=== PATIENT | female | born 1950 | race Caucasian/White ===

== ENCOUNTER 2019-01-17 17:20 | Emergency (ER) | payer OTHER ==
--- NOTE | 2019-01-17 17:47 | PDOC ---
Rapid Medical Evaluation Time Seen by Provider: 01/17/19 17:45 Medical Evaluation: 01/17/19 17:45 HPI: vagianl and anal itching with dizziness x3 days PE:deferred no gross deficits ORDERS: UA and Cx labs Discharge Disposition - Diagnosis Dizziness, Vaginal itching - Referrals - Patient Instructions - Post Discharge Activity
[2019-01-17 18:05] VITALS: TEMP 97.8; BMI 28.3
[2019-01-17 18:52] VITALS: BP 156/69; PULSE 62
[2019-01-17 19:20] LABS: EOS % 2.9 % (0-4.5); HEMATOCRIT 41.1 % (32.4-45.2); LYMPH % 14.2 % (8-40); MCH 30.9 pg (25.7-33.7); MEAN CELL VOLUME 90.9 fl (80-96); MEAN PLT VOLUME 9.6 fl (7.5-11.1); MONO % 5.1 % (3.8-10.2); NEUT % 76.8 % (42.8-82.8); PLATELET COUNT 187 K/MM3 (134-434); RBC 4.52 M/mm3 (3.60-5.2); RDW 13.5 % (11.6-15.6); WHITE BLOOD COUNT 8.2 K/mm3 (4.0-10.0)
[2019-01-17 19:36] LABS: BILIRUBIN,TOTAL 0.3 mg/dL (0.2-1); BLOOD UREA NITROGEN 10.9 mg/dL (7-18); CALCIUM 8.8 mg/dL (8.5-10.1); POTASSIUM 3.9 mmol/L (3.5-5.1); TOT PROT 6.7 g/dl (6.4-8.2)
[2019-01-17] MEDS ORDERED: HYDROCORTISONE 2.5% TOPICAL CREAM 30 GM TUBE TP STA (19:54)
--- NOTE | 2019-01-17 19:55 | PDOC ---
History of Present Illness - General Chief Complaint: Lightheaded Stated Complaint: VAGINAL ITCHING Time Seen by Provider: 01/17/19 17:45 History Source: Patient Exam Limitations: No Limitations - History of Present Illness Initial Comments: HPI: 68 y/o female presenting to [facility] ER complaining of four months of vaginal rash with itching and burning. Rash is localized and does not radiate beyond the vaginal/ perineal area. Was evaluated at [facility] ED approx. 4 weeks ago and given unknown prescription, thinks possibly Clotrimazone, which gave minimal relief. Was also instructed to bathe in bleach which made the sensation worse. Denies vaginal discharge or involvement of mouth or eyes. Denies new medications. Not sexually active in approx. 10 years since the of her . Reports her boyfriend is in his 70s and think goodness, doesnt want it. Reported lightheadedness to RME. Clarified that the itching becomes so intense that she feels lightheaded. Medical Hx: - Asthma - HTN - CAD s/p IL - Nonspecific skin allergies, denies similarity to current complaint. Never been evaluated by an staking press operator. Review of Systems: In addition to that documented in the HPI above, the additional ROS was obtained : Constitutional: Denies fevers or chills ENMT: Denies sore throat CV: Denies chest pain Resp: Denies SOB GI: Denies vomiting or diarrhea Skin: Per HPI Physical Examination: Constitutional: Well-developed, well-nourished adult female in no acute distress but obvious discomfort. Found sitting upright on edge of hospital DIGESTER OPERATOR table. Alert and oriented x4. Answered all questions appropriately and completely. Speech was non-labored, non-pressured. Cardiovascular / Chest: Regular rate and regular rhythm. No murmur, rubs, clicks , or gallops. Peripheral pulses: radial pulses full. Respiratory: Breathing unlabored. Equal chest rise and fall. Clear to auscultation bilaterally. No stridor, no wheezing, no rhonchi. Neuro: Alert and oriented. Moving all four extremities spontaneously. Skin: Warm, dry, and intact. No bruising, rashes, or other lesions. No palpable nodules. Psych: Affect: appropriate. Mood: normal. Female Pelvic: Labia majora is dry and leathery. Papules without erythema or drainage found bilaterally surrounding and on top of the labia majora. Puretic with diffuse excoriation ramirez. Lesions do not extend internally. Pt observed vigorously scratching the area at multiple times during the exam. RN chaperoned exam. Female Rectal: Small external hemorrhoid at 12 oclock without erythema or excoriation. MDM: *Reviewed vital signs, nursing notes, and prior visit documentation (if available). 68 y/o non-diabetic female presenting with several months of intensely pruritic vaginal rash. No involvement of other mucosal membranes. Afebrile. Vitals unremarkable for hypotension or tachycardia. Note initial triage vitals remarkable for mild hypoxia but subsequent measurements within normal limits. Suspect this was an erroneous measurement as pt is without respiratory complaints. Physical exam as described above. Low suspicion for volvovaginal candidiasis, herpetic lesions, moluscum, or SJS/ TEN. RME ordered EKG, CBC, and CMP. UA and culture cancelled as symptoms are more likely cutaneous given physical exam findings. EKG unremarkable for ischemic findings. CBC unremarkable for leukocytosis. CMP unremarkable for significant electrolyte derangement. Ordered Benadryl IM and hydrocortisone to be applied to the area. Pt reports symptom improvement. Will prescribe short course of PO Benadryl and topical hydrocortisone. Given referral for dermatology and OBGYN. Discussed physical exam and laboratory results with pt. Answered all questions. Provided return precautions. Pt expressed verbal understanding and agreement with plan to discharge home with outpatient follow up. Geovanni Dutta M.D., PGY2 Emergency Medicine Resident Past History - Past Medical History Allergies/Adverse Reactions: Allergies Allergy/AdvReac Type Severity Reaction Status Date / Time No Known Allergies Allergy Verified 01/17/19 17:59 Home Medications: Ambulatory Orders Diphenhydramine HCl [Benadryl -] 25 mg PO Q6H #28 capsule 01/17/19 Hydrocortisone 2.5% Topical Cr [Anusol-Hc -] 1 applic RC BID #1 tube 01/17/19 - Suicide/Smoking/Psychosocial Hx Smoking History: Never smoked Hx Alcohol Use: No Drug/Substance Use Hx: No *Physical Exam - Vital Signs Last Vital Signs Temp Pulse Resp BP Pulse Ox 97.8 F 82 16 137/76 99 01/17/19 17:59 01/17/19 17:59 01/17/19 17:59 01/17/19 17:59 01/17/19 17:59 ED Treatment Course - LABORATORY CBC & Chemistry Diagram: 01/17/19 19:00 01/17/19 19:00 - ADDITIONAL ORDERS Additional order review: Laboratory Results 01/17/19 19:00 Sodium 138 Potassium 3.9 Chloride 102 Carbon Dioxide 32 Anion Gap 4 L BUN 10.9 Creatinine 1.0 Est GFR (CKD-EPI)AfAm 67.51 Est GFR (CKD-EPI)NonAf 58.25 Random Glucose 129 H Calcium 8.8 Total Bilirubin 0.3 AST 15 ALT 21 Alkaline Phosphatase 70 Total Protein 6.7 Albumin 4.0 01/17/19 19:00 RBC 4.52 MCV 90.9 MCHC 34.0 RDW 13.5 MPV 9.6 Neutrophils % 76.8 Lymphocytes % 14.2 Monocytes % 5.1 Eosinophils % 2.9 Basophils % 1.0 *DC/Admit/Observation/Transfer Diagnosis at time of Disposition: Vaginal itching, Rash in adult - Discharge Dispostion Disposition: HOME Condition at time of disposition: Improved Decision to Admit order: No - Prescriptions Prescriptions: Diphenhydramine HCl [Benadryl -] 25 mg PO Q6H #28 capsule Hydrocortisone 2.5% Topical Cr [Anusol-Hc -] 1 applic RC BID #1 tube - Referrals Referrals: Danii Rolle-Neo Larson [Primary Care Provider] - Renata Tolliver MD [Staff Physician] - Dianne Dempsey MD [Staff Physician] - - Patient Instructions Printed Discharge Instructions: DI for Vaginal Itching Additional Instructions: You were seen today for vaginal itching and a rash for the past four months. You were given a Benadryl injection and Hydrocortisone cream. Cut your fingernails and attempt to stop scratching the area. This will make the rash worse. I have sent a prescription for Benadryl and Hydrocortisone cream to your pharmacy. Take as directed on the package insert. Do not take more than the recommended dose. You need to follow up with a commodity merchant. I have placed a referral for you to see Dr. Tolliver. You will need to call to make an appointment. The number is included in this packet. You need to follow up with an OBGYN doctor. I have placed a referral for you to see Dr. Dempsey. You will need to call to make an appointment. The number is included in this packet. You can also follow up with your primary care doctor. Go to the nearest emergency department if your condition worsens or you feel like you need additional emergency evaluation. Print Language: CITIZEN OF [place] - Post Discharge Activity
--- NOTE | 2019-01-17 20:24 | PDOC ---
Documentation entered by Jorge Faria SCRIBE, acting as scribe for Rosa Edmonds MD. Rosa Edmonds MD: This documentation has been prepared by the Bienvenido castellon Joel, SCRIBE, under my direction and personally reviewed by me in its entirety. I confirm that the documentation accurately reflects all work, treatment, procedures, and medical decision making performed by me. Attending Attestation - Resident Resident Name: Geovanni Dutta - ED Attending Attestation I have performed the following: I have examined & evaluated the patient, The case was reviewed & discussed with the resident, I agree w/resident's findings & plan, Exceptions are as noted - HPI HPI: 01/17/19 20:09 The patient is a 68 year old female with a significant PMH of CAD, ND, asthma, and HTN who presents to the emergency department for evaluation of vaginal itching for the past 3 days. The patient denies chest pain, shortness of breath, headache and dizziness. Denies fever, chills, nausea, vomit, diarrhea and constipation. Denies dysuria, frequency, urgency and hematuria. Allergies: NKA Past surgical history: None reported. Social history: No reported cigarette, alcohol, or drug use. PCP: Dr. Tomy Rolle - Physicial Exam PE: 01/17/19 20:05 PE: Agree with resident exam. - Medical Decision Making 01/17/19 20:21 68 yo female with four months of pruretic lesions on genitalia . NO fever,no chills, no drainage the lesions are dry ,no vesicles, no purulence,no erythema pt given RX for itching and referred to Dr Tolliver and the pt's target setter
--- NOTE | 2019-01-18 08:18 | EKG ---
Test Reason : Blood Pressure : / mmHG Vent. Rate : 079 BPM Atrial Rate : 079 BPM P-R Int : 172 ms QRS Dur : 102 ms QT Int : 414 ms P-R-T Axes : 063 -23 129 degrees QTc Int : 474 ms NORMAL SINUS RHYTHM POSSIBLE LEFT ATRIAL ENLARGEMENT SEPTAL INFARCT (CITED ON OR BEFORE 01-APR-2016) T WAVE ABNORMALITY, CONSIDER LATERAL ISCHEMIA ABNORMAL ECG WHEN COMPARED WITH ECG OF 01-APR-2016 11:24, NO SIGNIFICANT CHANGE WAS FOUND Confirmed by DOV LINARES, KEYON ([id number]) on 01/18/2019 8:17:37 AM Referred By: Confirmed By:KEYON MONAE MD
== END 2019-01-17 20:45 | disposition home or self-care (01) ==
LOC: JER 17:20
PROC: 3E023GC Introduction of Other Therapeutic Substance into Muscle, Percutaneous Approach (ICD-10-PCS; principal; 2019-01-17)
DX: N89.8 Other specified noninflammatory disorders of vagina (principal); R21 Rash and other nonspecific skin eruption; I10 Essential (primary) hypertension; I25.10 Atherosclerotic heart disease of native coronary artery without angina pectoris; I25.2 Old myocardial infarction; J45.909 Unspecified asthma, uncomplicated
CPT/HCPCS: 36415; 80053; 85025; 93005; 93010; 96372; 99283-25